=== PATIENT | male | born 2000 | race Caucasian/White ===

== ENCOUNTER 2024-05-10 23:49 | Emergency (ER) | payer MEDICAID, SELFPAY ==
[2024-05-10 23:51] VITALS: BP 117/63; PULSE 77; RESP 16; TEMP 36.9; O2SAT 98; BMI 23.4
--- NOTE | 2024-05-10 23:55 | ED.VIS.LOWEX ---
HPI History of Present Illness Chief Complaint: Lower Extremity Injury Detail of Chief Complaint: Pain left knee after near fall Informant: patient Occured/Mechanism Mechanism/Context: Yes other see comment below Comment: Slipped at work. At twisting mechanism injury knee. There is no history of direct trauma Onset/Context/Timing Onset: Today and Hours Context: Sudden Onset Timing: Continuous Quality of Pain: Dull Location: Over the medial and lateral tibial plateau/anterior joint region of the lef Current Severity: Mild Maximum Severity: Moderate Worsened by: Movement and weightbearing Relieved by: Rest Associated Symptoms Associated Symptoms: Negative for Parasthesia, Weakness or Loss of Funtion Narrative Narrative: Patient is a 23-year-old male. He had an MRI which reveals has an ACL injury. He was to have surgery 3 months ago. Since that time he fell off a roof and apparently caused more injury. Today he had a near fall with a twisting mechanism injury. He complains of pain anterior joint line left knee. He has full active range of motion. He is able to bear weight and walk. He complains of pain when he walks.Imaging was not performed here. Prior similar symptoms: Yes Recent Illness/Hospitalization: No PF[facility] Medical History ACL tear Allergy/AdvReac Type Severity Reaction Status Date / Time No Known Allergies Allergy Verified 05/10/24 23:51 Social History Smoking Status: Never smoker ROS ROS ED Musculoskeletal Musculoskeletal: Reports other Details: Left knee pain due to near fall at work ; Denies arthralgias, back pain, myalgias or neck pain Integumentary Denies rash Neurologic Neurologic: Denies paresthesias or weakness Hematologic/Lymphatic Hematologic/Lymphatic: Denies easy bruising EXAM Physical Exam Const Vital Signs: 05/10/24 23:51 Temperature 98.5 F Temperature Source Oral Pulse Rate 77 Respiratory Rate 16 Blood Pressure 117/63 Blood Pressure Mean 81 Pulse Ox 98 Oxygen Delivery Method Room Air Positive well nourished and well developed General Appearance ED: well developed and NAD HEENT Reports moist mucous membranes normocephalic and atraumatic Eyes PERRL Eyes Narrative: Extract muscle intact. Sclera is anicteric. Resp normal respiratory effort Cardio regular rate and regular rhythm Extremity normal to inspection and full ROM Extremity Narrative: There is pain outpatient along the joint line. There is no pain the patient over the patella tendon or patella. Patient able to extend to 180 degrees and flex to 90 degrees. There is no palp pulsatile mass in the popliteal fossa or tenderness. Anisha's test did not elicit any significant laxity. Varus and valgus stress testing does reveal some mild laxity with good endpoint. This is increased from on injured knee. Modified Gloria's caused him pain and there was a click appreciated laterally. The patella is not ballotable. There is no effusion. There is no evidence of trauma noted. PT pulses 2+. Neuro oriented x3 and CN's II-XII intact bilaterally Sensorium / Orientation: alert Psych mental status grossly normal Skin no wounds Lesions: no lesions Rashes: no rashes MDM MDM MDM Narrative Medical decision making narrative: Suspect patient has strain to his knee and may have a meniscus injury which is new since his MRI and may be related to today's fall. Will obtain x-ray to assess for any bony abnormality otherwise this is soft tissue ligamentous injury. Patient was offered pain medicine which she declined. Radiography Chest X-Ray - ED: Read by ED Physician (4 view x-ray left knee was independently interpreted by me at 0011. There is no fracture, subluxation dislocation. Patella is not high riding. There is no free body noted in the joint. There is no asymmetry of the joint. There is no effusion noted either.) Treatment and Re-Evaluation Narrative: Plan is ice, NSAIDs and follow-up with orthopedist. Discharge Plan Triage Chief Complaint: Lower Extremity Injury ED Provider: [facility] Dx/Rx/DC Orders Clinical Impression: Strain of left knee, History of tear of ACL (anterior cruciate ligament) Instructions: ED Meniscal Injury Knee Poss Referrals: [facility] [Group of Physicians] - 3-5 Days Doctor,Your [Non-Staff] - 1-2 Weeks Activity Restrictions/Additional Instructions: 1. You may take either 4 ibuprofen tablets every 8 hours or 2 Aleve tablets every 12 hours for next 3 to 5 days for pain. 2. Recommend following up with corporate care since this is a work-related injury. 3. Recommend contacting the orthopedic surgeon who you have seen for your ACL injury. 4. Recommend application of ice 6-8 times a day. Print Language: [place] Disposition Disposition: Home, Self Care
--- NOTE | 2024-05-10 23:59 | RAD_ITS ---
EXAM: XR LEFT KNEE COMPLETE, 4 OR MORE VIEWS CLINICAL INDICATION: Injury/Pain TECHNIQUE: Four or more views of the left knee. COMPARISON: No relevant prior studies available. FINDINGS: BONES/JOINTS: Unremarkable. No acute fracture. No subluxation. Normal alignment. Preservation of the joint space. No sclerotic or destructive changes observed. SOFT TISSUES: Unremarkable. No soft tissue swelling or gas. No radiopaque foreign body. RAD/Knee 4 or More Views IMPRESSION: Unremarkable left knee radiographs. Electronically Signed: Luis Carlos Childress MD at 0:38 EST ,
== END 2024-05-11 00:24 | disposition home or self-care (01) ==
LOC: ED 05-11 00:17
PROVIDERS: Emergency Provider Emergency Medicine; Visit Provider Emergency Medicine
DX: S83.8X2A Sprain of other specified parts of left knee, initial encounter (principal); X50.1XXA Overexertion from prolonged static or awkward postures, initial encounter
CPT/HCPCS: 73564; 99282